=== PATIENT | female | born 2000 | race Caucasian/White ===

== ENCOUNTER 2020-10-15 23:49 | Emergency (ER) | payer OTHER ==
[~2020-10-15] VITALS: Ht 149.9 cm; Wt 58.2 kg
[2020-10-15] MEDS ORDERED: birth control tablet PO (23:56)
[2020-10-15] MEDS ORDERED: LEVO75TA4 PO (23:56)
--- NOTE | 2020-10-16 01:37 | REPVR ---
PROCEDURE INFORMATION: Exam: XR Left Ribs with PA Chest Exam date and time: 10/16/2020 1:17 AM Age: 19 years old Clinical indication: Chest wall pain; Left; Additional info: Rib pain with shortness of breath TECHNIQUE: Imaging protocol: XR Left ribs with PA chest. Views: 3 views COMPARISON: No relevant prior studies available. FINDINGS: Lungs: Lungs are free of infiltrates or masses. Pleural spaces: No pleural effusion. Heart/Mediastinum: Heart and mediastinal contours are normal. Bones/joints: No acute displaced rib fracture. No destructive or blastic rib lesion. No pneumothorax or other ancillary evidence of rib trauma. IMPRESSION: Negative left rib series with single view chest. No acute fracture or acute intrathoracic process. Electronically signed by: Eleuterio Hollins On 10/16/2020 01:36:58 AM
[2020-10-16] MEDS ORDERED: GI COCKTAIL 50ML BTL(HYOSCYAMINE/MAALOX/LIDOCAINE VISCOUS)(1:3:1) PO ONE (06:00)
[2020-10-16 06:38] LABS: BASO % 0.5 % (0.0-1.0); EOS # 0.2 10^3/uL (0.0-0.5); EOS % 2.4 % (0.0-3.0); HEMATOCRIT 42.1 % (36.0-47.0); HEMOGLOBIN 13.8 g/dl (12.0-15.5); LYMPH # 3.1 10^3/uL (1.5-5.0); LYMPH % 49.8 % (24.0-44.0); MEAN CORPUSCULAR HEMOGLOBIN 29.8 pg (27.0-33.0); MEAN CORPUSCULAR HGB CONC 32.8 g/dl (32.0-36.5); MEAN CORPUSCULAR VOLUME 90.9 fl (80.0-96.0); MONO # 0.5 10^3/uL (0.0-0.8); MONO % 7.2 % (2.0-8.0); NEUTROPHILS # 2.5 10^3/uL (1.5-8.5); NEUTROPHILS % 39.9 % (36.0-66.0); PLATELET COUNT, AUTOMATED 285 10^3/uL (150-450); RED BLOOD COUNT 4.63 10^6/uL (4.00-5.40); WHITE BLOOD COUNT 6.2 10^3/uL (4.0-10.0)
[2020-10-16 06:59] LABS: ERYTHROCYTE SEDIMENTATION RATE 8 mm/hr (0-20)
[2020-10-16 07:01] LABS: ALT/SGPT 30 U/L (12-78); BILIRUBIN,TOTAL 0.5 MG/DL (0.2-1.0); BLOOD UREA NITROGEN 17 MG/DL (7-18); CALCIUM LEVEL 8.8 MG/DL (8.5-10.1); CARBON DIOXIDE LEVEL 28 MEQ/L (21-32); CHLORIDE LEVEL 109 MEQ/L (98-107); CREATININE FOR GFR 0.63 MG/DL (0.55-1.30); GLUCOSE, FASTING 86 MG/DL (70-100); LIPASE 96 U/L (73-393); POTASSIUM SERUM 3.7 MEQ/L (3.5-5.1); SODIUM LEVEL 140 MEQ/L (136-145); TOTAL PROTEIN 7.6 GM/DL (6.4-8.2)
[2020-10-16 07:02] LABS: HCG, SERUM QUALITATIVE NEGATIVE (NEGATIVE)
[2020-10-16] MEDS ORDERED: ISOVUE-370 76% 100ML VIAL As Ordered ONE (07:42)
--- NOTE | 2020-10-16 08:09 | REPVR ---
PROCEDURE INFORMATION: Exam: CTA Chest With Contrast Exam date and time: 10/16/2020 7:48 AM Age: 19 years old Clinical indication: Other: Chest pain, recent travel, elevated ddimer TECHNIQUE: Imaging protocol: Computed tomographic angiography of the chest with contrast. 3D rendering (Not supervised by radiologist): MIP and/or 3D reconstructed images were created by the technologist. Radiation optimization: All CT scans at this facility use at least one of these dose optimization techniques: automated exposure control; mA and/or kV adjustment per patient size (includes targeted exams where dose is matched to clinical indication); or iterative reconstruction. Contrast material: ISOVUE 370; Contrast volume: 75 ml; Contrast route: INTRAVENOUS (IV); COMPARISON: CR Ribs uni W-PA CHEST ONLY LEFT 10/16/2020 12:58 AM FINDINGS: Pulmonary arteries: No pulmonary embolus is identified. Aorta: The thoracic aorta is nonaneurysmal. Lungs: Unremarkable. No consolidation. No masses. Pleural spaces: Unremarkable. No pneumothorax. No pleural effusion. Heart: Unremarkable. No cardiomegaly. No pericardial effusion. Lymph nodes: Unremarkable. No enlarged lymph nodes. Bones/joints: Unremarkable. No acute fracture. Soft tissues: Unremarkable. IMPRESSION: No pulmonary embolus or other acute thoracic disease identified. Electronically signed by: Brett Rich On 10/16/2020 08:08:58 AM
[2020-10-16 08:49] VITALS: BP 122/58
--- NOTE | 2020-10-17 09:57 | ECGEPIP ---
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
== END 2020-10-16 08:53 | disposition home or self-care (01) ==
LOC: M ED 23:49
DX: R07.89 Other chest pain (principal); E03.9 Hypothyroidism, unspecified; R06.02 Shortness of breath; Z79.3 Long term (current) use of hormonal contraceptives; Z79.899 Other long term (current) drug therapy
CPT/HCPCS: 71101; 71275; 80053; 83690; 84703; 85025; 85379; 85652; 86140; 93005; 99284; Q9967

== ENCOUNTER 2021-09-21 08:26 | Emergency (ER) | payer OTHER ==
[~2021-09-21] VITALS: Ht 147.3 cm; Wt 62.3 kg
[~2021-09-21 08:26] MED LIST: LEVO75TA4 PO; birth control tablet PO
[2021-09-21] MEDS ORDERED: SYNT100T (08:32)
[2021-09-21 09:10] LABS: BASO % 0.5 % (0.0-1.0); EOS # 0.3 10^3/uL (0.0-0.5); EOS % 3.3 % (0.0-3.0); HEMATOCRIT 40.1 % (36.0-47.0); HEMOGLOBIN 13.5 g/dl (12.0-15.5); LYMPH # 3.3 10^3/uL (1.5-5.0); LYMPH % 43.7 % (24.0-44.0); MEAN CORPUSCULAR HEMOGLOBIN 30.1 pg (27.0-33.0); MEAN CORPUSCULAR HGB CONC 33.7 g/dl (32.0-36.5); MEAN CORPUSCULAR VOLUME 89.3 fl (80.0-96.0); MONO # 0.6 10^3/uL (0.0-0.8); MONO % 7.3 % (2.0-8.0); NEUTROPHILS # 3.4 10^3/uL (1.5-8.5); NEUTROPHILS % 45.1 % (36.0-66.0); PLATELET COUNT, AUTOMATED 268 10^3/uL (150-450); RED BLOOD COUNT 4.49 10^6/uL (4.00-5.40); WHITE BLOOD COUNT 7.5 10^3/uL (4.0-10.0)
[2021-09-21 10:49] VITALS: BP 119/79
== END 2021-09-21 10:51 | disposition home or self-care (01) ==
LOC: M ED 08:26
DX: O20.0 Threatened abortion (principal); O99.280 Endocrine, nutritional and metabolic diseases complicating pregnancy, unspecified trimester; E03.9 Hypothyroidism, unspecified; Z79.890 Hormone replacement therapy; Z3A.00 Weeks of gestation of pregnancy not specified

== ENCOUNTER → 2021-09-23 | Outpatient (CLI) | payer OTHER ==
[~2021-09-23] MED LIST changes: +SYNT100T
== END ==
LOC: M LAB 11:47
PROVIDERS: ATTEND Physician Assistant Medical
DX: O20.0 Threatened abortion (principal); Z3A.00 Weeks of gestation of pregnancy not specified

== ENCOUNTER → 2021-10-08 | Outpatient (CLI) | payer OTHER | LOC: M LAB 12:08 | PROVIDERS: ATTEND Obstetrics & Gynecology | DX: O02.81 Inappropriate change in quantitative human chorionic gonadotropin (hCG) in early pregnancy (principal) ==

== ENCOUNTER 2022-04-06 00:49 | Emergency (ER) | payer OTHER ==
[~2022-04-06] VITALS: Ht 147.3 cm; Wt 63.5 kg
[2022-04-06 00:55] VITALS: BP 142/85
[2022-04-06] MEDS ORDERED: PRENTAB7 PO (01:00)
[2022-04-06 03:06] LABS: BASO % 0.2 % (0.0-1.0); EOS # 0.3 10^3/uL (0.0-0.5); EOS % 2.3 % (0.0-3.0); HEMATOCRIT 33.7 % (36.0-47.0); HEMOGLOBIN 11.6 g/dl (12.0-15.5); LYMPH # 3.6 10^3/uL (1.5-5.0); LYMPH % 31.5 % (24.0-44.0); MEAN CORPUSCULAR HEMOGLOBIN 30.9 pg (27.0-33.0); MEAN CORPUSCULAR HGB CONC 34.4 g/dl (32.0-36.5); MEAN CORPUSCULAR VOLUME 89.6 fl (80.0-96.0); MONO # 0.7 10^3/uL (0.0-0.8); MONO % 6.2 % (2.0-8.0); NEUTROPHILS # 6.9 10^3/uL (1.5-8.5); NEUTROPHILS % 59.5 % (36.0-66.0); PLATELET COUNT, AUTOMATED 267 10^3/uL (150-450); RED BLOOD COUNT 3.76 10^6/uL (4.00-5.40); WHITE BLOOD COUNT 11.5 10^3/uL (4.0-10.0)
[2022-04-06 03:32] LABS: BLOOD UREA NITROGEN 9 MG/DL (9-23); CALCIUM LEVEL 8.9 MG/DL (8.5-10.1); CARBON DIOXIDE LEVEL 25 MMOL/L (20-31); CHLORIDE LEVEL 104 MMOL/L (98-107); CK-MB VALUE MASS < 1.0 NG/ML (<3.6); CPK CREATINE PHOSPHOKINASE 41 U/L (34-145); CREATININE FOR GFR 0.42 MG/DL (0.55-1.30); GLOMERULAR FILTRATION RATE > 60.0 (>60); GLUCOSE, FASTING 88 MG/DL (60-100); MAGNESIUM LEVEL 1.8 MG/DL (1.8-2.4); MB/CK RELATIVE INDEX 2.43 (< OR =4); POTASSIUM SERUM 3.6 MMOL/L (3.5-5.1); SODIUM LEVEL 139 MMOL/L (136-145)
[2022-04-06 04:22] LABS: CK-MB VALUE MASS < 1.0 NG/ML (<3.6)
[2022-04-06 04:24] LABS: CPK CREATINE PHOSPHOKINASE 34 U/L (34-145); MB/CK RELATIVE INDEX 2.94 (< OR =4)
== END 2022-04-06 04:17 | disposition left against medical advice (07) ==
LOC: EDBD 00:49 → M ED 00:49
DX: Z53.21 Procedure and treatment not carried out due to patient leaving prior to being seen by health care provider (principal)

== ENCOUNTER → 2022-04-23 | Outpatient (CLI) | payer OTHER ==
[~2022-04-23] MED LIST changes: +PRENTAB7 PO
== END ==
LOC: M LAB 15:19
PROVIDERS: ATTEND Obstetrics & Gynecology
DX: E06.3 Autoimmune thyroiditis (principal)

== ENCOUNTER 2022-05-28 14:00 | Outpatient (CLI) | payer OTHER ==
[~2022-05-28] VITALS: Ht 147.3 cm; Wt 64.2 kg
[2022-05-28 14:20] VITALS: BP 117/64
[2022-05-28] MEDS ORDERED: LEVO137C PO (14:24)
[2022-05-28] MEDS ORDERED: HOME MED LIST COMPLETE! XX SCH (14:25)
== END 2022-05-28 15:10 | disposition home or self-care (01) ==
LOC: M LDO 14:00
PROVIDERS: ATTEND Advanced Practice Midwife
DX: O36.8120 Decreased fetal movements, second trimester, not applicable or unspecified (principal); Z3A.21 21 weeks gestation of pregnancy; O99.612 Diseases of the digestive system complicating pregnancy, second trimester; K52.9 Noninfective gastroenteritis and colitis, unspecified
CPT/HCPCS: 59025; 76815; G0463

== ENCOUNTER 2022-08-25 22:26 | Outpatient (CLI) | payer OTHER ==
[~2022-08-25] VITALS: Ht 147.3 cm; Wt 70.5 kg
[~2022-08-25 22:26] MED LIST changes: +LEVO137C PO
[2022-08-25 22:39] VITALS: BP 135/70
[2022-08-25] MEDS ORDERED: FERR325T3 PO (22:49)
[2022-08-25] MEDS ORDERED: HOME MED LIST COMPLETE! XX SCH (22:50)
[2022-08-25] MEDS ORDERED: LR 1,000 ML IV ONE (23:55)
[2022-08-26 00:31] LABS: ALBUMIN 2.9 G/DL (3.2-5.2); ALKALINE PHOSPHATASE 93 U/L (46-116); ALT/SGPT < 9 U/L (7.0-40); AST/SGOT < 8 U/L (<34); BILIRUBIN,TOTAL 0.4 MG/DL (0.3-1.2); BLOOD UREA NITROGEN 6 MG/DL (9-23); CALCIUM LEVEL 8.5 MG/DL (8.5-10.1); CARBON DIOXIDE LEVEL 23 MMOL/L (20-31); CHLORIDE LEVEL 106 MMOL/L (98-107); CREATININE FOR GFR 0.44 MG/DL (0.55-1.30); GLOMERULAR FILTRATION RATE > 60.0 (>60); GLUCOSE, FASTING 95 MG/DL (60-100); POTASSIUM SERUM 3.6 MMOL/L (3.5-5.1); SODIUM LEVEL 137 MMOL/L (136-145)
[2022-08-26 01:00] LABS: INR 1.04; PROTHROMBIN TIME 13.8 SECONDS (12.5-14.5)
[2022-08-26] MEDS ORDERED: ACETAMINOPHEN 500 MG TAB PO ONE (01:00)
[2022-08-26] MEDS ORDERED: FLUCONAZOLE 50MG TABLET PO ONE (01:00)
[2022-08-26] MEDS ORDERED: CYCLOBENZAPRINE 5MG TABLET PO ONE (01:00)
[2022-08-26 01:01] LABS: HEMATOCRIT 29.9 % (36.0-47.0); HEMOGLOBIN 10.1 g/dl (12.0-15.5); MEAN CORPUSCULAR HEMOGLOBIN 29.6 pg (27.0-33.0); MEAN CORPUSCULAR HGB CONC 33.8 g/dl (32.0-36.5); MEAN CORPUSCULAR VOLUME 87.7 fl (80.0-96.0); PLATELET COUNT, AUTOMATED 252 10^3/uL (150-450); RED BLOOD COUNT 3.41 10^6/uL (4.00-5.40); WHITE BLOOD COUNT 11.5 10^3/uL (4.0-10.0)
[2022-08-26 01:01] LABS: PARTIAL THROMBOPLASTIN TIME 32.8 SECONDS (24.8-34.2)
[2022-08-26 02:45] VITALS: BP 97/52
== END 2022-08-26 03:08 | disposition home or self-care (01) ==
LOC: M LDO 22:26
PROVIDERS: ATTEND Obstetrics & Gynecology
DX: O26.893 Other specified pregnancy related conditions, third trimester (principal); R10.9 Unspecified abdominal pain; O23.593 Infection of other part of genital tract in pregnancy, third trimester; Z79.890 Hormone replacement therapy; O99.283 Endocrine, nutritional and metabolic diseases complicating pregnancy, third trimester; E03.9 Hypothyroidism, unspecified; Z3A.34 34 weeks gestation of pregnancy
CPT/HCPCS: 36415; 59025; 76815; 76820; 80053; 81001; 85027; 85384; 85610; 85730; G0463

== ENCOUNTER → 2022-08-29 | Outpatient (CLI) | payer OTHER ==
[~2022-08-29] MED LIST changes: +FERR325T3 PO
== END ==
LOC: M LAB 12:46
PROVIDERS: ATTEND Obstetrics & Gynecology
DX: E03.9 Hypothyroidism, unspecified (principal); Z3A.35 35 weeks gestation of pregnancy

== ENCOUNTER 2022-10-01 14:13 | Outpatient (CLI) | payer OTHER ==
[~2022-10-01] VITALS: Ht 147.3 cm; Wt 75.2 kg
[2022-10-01] MEDS ORDERED: HOME MED LIST COMPLETE! XX SCH (14:25)
[2022-10-01 14:31] VITALS: BP 130/74
[2022-10-02] MEDS ORDERED: ASCO500T PO (15:17)
[2022-10-02] MEDS ORDERED: FERR325T3 PO (15:17)
[2022-10-02] MEDS ORDERED: LEVO150T7 PO (15:17)
== END 2022-10-01 17:19 | disposition home or self-care (01) ==
LOC: M LDO 14:13
PROVIDERS: ATTEND Advanced Practice Midwife
DX: O47.1 False labor at or after 37 completed weeks of gestation (principal); Z3A.39 39 weeks gestation of pregnancy; O99.820 Streptococcus B carrier state complicating pregnancy
CPT/HCPCS: 59025; 76815; G0463

== ENCOUNTER 2022-10-02 03:15 | Inpatient (IN) | payer OTHER ==
[~2022-10-02] VITALS: Ht 147.3 cm; Wt 75.8 kg
[2022-10-02] VITALS (27 sets, daily range): BP systolic 110–202; BP diastolic 56–134; O2SAT 96–97
[2022-10-02] MEDS ORDERED: LR 1,000 ML IV ONE (04:00)
[2022-10-02] MEDS ORDERED: LR 1,000 ML IV SCH (04:00)
[2022-10-02] MEDS ORDERED: PENICILLIN G POTASSIUM 5 MU IV 5 MU in D5W MINI-BAG PLUS 100 ML IV STA (04:06)
[2022-10-02] MEDS ORDERED: OXYTOCIN INJ 10UNITS/ML 1ML VIAL IM PRN (04:10)
[2022-10-02] MEDS ORDERED: OXYTOCIN DRIP 30 UNITS in IV 1 EA IV PRN (04:10)
[2022-10-02] MEDS ORDERED: TRANEXAMIC ACID INJection 1,000 MG in NS 100 ML IV PRN (04:10)
[2022-10-02] MEDS ORDERED: LIDOCAINE 1% MDV 20ML VIAL INFIL PRN (04:10)
[2022-10-02] MEDS ORDERED: METHYLERGONOVINE MALEATE 0.2MG/ML 1ML VIAL IM PRN (04:10)
[2022-10-02 04:22] LABS: HEMATOCRIT 32.4 % (36.0-47.0); HEMOGLOBIN 10.9 g/dl (12.0-15.5); MEAN CORPUSCULAR HEMOGLOBIN 29.1 pg (27.0-33.0); MEAN CORPUSCULAR HGB CONC 33.6 g/dl (32.0-36.5); MEAN CORPUSCULAR VOLUME 86.6 fl (80.0-96.0); PLATELET COUNT, AUTOMATED 258 10^3/uL (150-450); RED BLOOD COUNT 3.74 10^6/uL (4.00-5.40); WHITE BLOOD COUNT 12.8 10^3/uL (4.0-10.0)
[2022-10-02] MEDS ORDERED: NALOXONE INJ 0.4MG/1ML VIAL IV PRN (04:55)
[2022-10-02] MEDS ORDERED: LR 500 ML IV PRN (04:55)
[2022-10-02] MEDS ORDERED: EPIDURAL/PCA KEYS XX PRN (04:55)
[2022-10-02] MEDS ORDERED: ePHEDrine SULFATE 25 MG/5 ML(5MG/ML) SYRINGE IVP PRN (04:55)
[2022-10-02] MEDS ORDERED: ONDANSETRON 4MG 2ML VIAL IV PRN (04:55)
[2022-10-02] MEDS ORDERED: FENTANYL/ROPIVACAINE/NACL BAG 100 ML EPIDURAL SCH (04:55)
[2022-10-02] MEDS ORDERED: diphenhydrAMINE 50MG/ML VIAL IV PRN (04:55)
[2022-10-02] MEDS: LEVOTHYROXINE 150MCG TABLET (0.15MG) PO SCH (06:29)
[2022-10-02 08:10] LABS: APPEARANCE, URINE CLEAR (CLEAR); BACTERIA, URINE AUTO NEGATIVE (NEGATIVE); BILIRUBIN, URINE AUTO NEGATIVE (NEGATIVE); BLOOD, URINE BLOOD 3+ (NEGATIVE); COLOR, URINE YELLOW (YELLOW); GLUCOSE, URINE (UA) AUTO NEGATIVE (NEGATIVE); KETONE, URINE AUTO NEGATIVE (NEGATIVE); LEUKOCYTE ESTERASE, URINE AUTO NEGATIVE (NEGATIVE); MUCUS, URINE SMALL (NEGATIVE); NITRITE, URINE AUTO NEGATIVE (NEGATIVE); PROTEIN, URINE AUTO NEGATIVE (NEGATIVE); RBC, URINE AUTO 169 /HPF (0-3); SPECIFIC GRAVITY URINE AUTO 1.016 (1.002-1.035); SQUAMOUS EPITHELIAL CELL UR AU 0 /HPF (0-6); UROBILINOGEN, URINE AUTO 0.2 mg/dL (0.0-2.0); WBC, URINE AUTO 1 /HPF (0-3)
[2022-10-02] MEDS ORDERED: PEN G POT 3,000,000 UNIT/50 ML 3,000,000 UNIT in IV 1 EA IV SCH (08:30)
[2022-10-02 08:36] LABS: TOTAL PROTEIN,RANDOM URINE 33.2 MG/DL (0.0-14.0)
[2022-10-02 08:41] LABS: CREATININE,RANDOM URINE 69.6 MG/DL
[2022-10-02] MEDS ORDERED: ACETAMINOPHEN 500 MG TAB PO PRN (10:45)
[2022-10-02] MEDS ORDERED: ACETAMINOPHEN TAB 650MG DOSE (2X325MG) PO PRN (10:45)
[2022-10-02] MEDS ORDERED: METHYLERGONOVINE MALEATE 0.2 MG TAB PO PRN (10:45)
[2022-10-02] MEDS ORDERED: OXYTOCIN DRIP 30 UNITS in IV 1 EA IV SCH (10:45)
[2022-10-02] MEDS ORDERED: DIBUCAINE 1% OINTMENT 30GM TOP PRN (10:45)
[2022-10-02] MEDS ORDERED: DOCUSATE SODIUM 100MG CAPSULE PO PRN (10:45)
[2022-10-02] MEDS ORDERED: IBUPROFEN 600MG TAB PO PRN (10:45)
[2022-10-02] MEDS: IBUPROFEN 800 MG TAB PO PRN ×2 (11:34→23:04)
[2022-10-02] MEDS ORDERED: ASCO500T PO (15:17)
[2022-10-02] MEDS ORDERED: FERR325T3 PO (15:17)
[2022-10-02] MEDS ORDERED: LEVO150T7 PO (15:17)
[2022-10-03 06:00] VITALS: BP 105/56; O2SAT 96
[2022-10-03] MEDS: LEVOTHYROXINE 150MCG TABLET (0.15MG) PO SCH (06:05)
[2022-10-03] MEDS: FERROUS SULFATE 325MG TAB PO SCH (08:24)
[2022-10-03] MEDS: PRENATAL VITAMINS CHEWABLE TABLET PO SCH (08:24)
[2022-10-03] MEDS ORDERED: ONDANSETRON 4MG ORAL DISINTEGRATING TAB PO PRN (10:15)
[2022-10-03] MEDS ORDERED: HYDROCORTISONE 1% CREAM 30GM TOP PRN (10:15)
[2022-10-03] MEDS ORDERED: diphenhydrAMINE CREAM 30GM TOP PRN (10:15)
[2022-10-03 18:00] VITALS: BP 115/62; O2SAT 98
[2022-10-03 21:13] VITALS: BP 115/62; O2SAT 98
[2022-10-04] MEDS: LEVOTHYROXINE 150MCG TABLET (0.15MG) PO SCH (05:28)
[2022-10-04] MEDS: IBUPROFEN 800 MG TAB PO PRN (05:30)
[2022-10-04 06:00] VITALS: BP 145/70; O2SAT 98
[2022-10-04] MEDS: FERROUS SULFATE 325MG TAB PO SCH (09:05)
[2022-10-04] MEDS: PRENATAL VITAMINS CHEWABLE TABLET PO SCH (09:05)
== END 2022-10-04 12:55 | disposition home or self-care (01) | DRG 807 ==
LOC: M LDO 03:15 → M LDI 03:43 → M OBS 12:19
PROVIDERS: ADMIT Obstetrics & Gynecology; ATTEND Advanced Practice Midwife
PROC: 10E0XZZ Delivery of Products of Conception, External Approach (ICD-10-PCS; principal; 2022-10-02)
PROC: 0HQ9XZZ Repair Perineum Skin, External Approach (ICD-10-PCS; 2022-10-02)
DX: O99.284 Endocrine, nutritional and metabolic diseases complicating childbirth (principal); Z37.0 Single live birth; O99.824 Streptococcus B carrier state complicating childbirth; O99.02 Anemia complicating childbirth; D64.9 Anemia, unspecified; E06.3 Autoimmune thyroiditis; Z3A.40 40 weeks gestation of pregnancy; Z79.890 Hormone replacement therapy; O70.0 First degree perineal laceration during delivery; O76 Abnormality in fetal heart rate and rhythm complicating labor and delivery